=== PATIENT | female | born 1945 | race Caucasian/White ===

== ENCOUNTER → 2017-08-16 | Outpatient (CLI) | payer MEDICARE ==
[~2017-08-16] MED LIST: ATOXIMETIN-B1 CAP PO; Ecotrin325 MG PO; MOTRIN800 MG PO
== END ==
LOC: RAD 18:09
DX: M40.294 Other kyphosis, thoracic region (principal); Q25.46 Tortuous aortic arch

== ENCOUNTER → 2018-06-29 | Outpatient (CLI) | payer MEDICARE | END | disposition home or self-care (01) | LOC: RAD 17:29 | DX: M47.896 Other spondylosis, lumbar region (principal); M54.40 Lumbago with sciatica, unspecified side; I70.0 Atherosclerosis of aorta ==

== ENCOUNTER 2018-11-28 15:16 | Emergency (ER) | payer MEDICARE ==
[~2018-11-28] VITALS: Ht 165.1 cm; Wt 65.8 kg
[2018-11-28 16:19] LABS: HEMATOCRIT 33.3 % (37.0-47.0); HEMOGLOBIN 10.8 g/dl (12.0-16.0); MEAN CELL VOLUME 109.2 fl (81.0-99.0); MEAN CORPUSCULAR HGB 35.4 pg (27.0-31.0); MEAN CORPUSCULAR HGB CONC 32.4 g/dl (33.0-37.0); MEAN PLATELET VOLUME 11.4 fl (9.6-12.3); PLATELET COUNT AUTOMATED 164 10*3/uL (130-400); RED BLOOD COUNT 3.05 10*6/uL (4.10-5.10); RED CELL DISTRI WIDTH 15.6 % (0-14.5); WHITE BLOOD COUNT 11.7 10*3/uL (4.8-10.8)
[2018-11-28 16:30] LABS: ACT PARTIAL THROMBO TIME 25.1 SECONDS (20.8-31.5)
[2018-11-28 16:34] LABS: BILIRUBIN NEGATIVE (NEGATIVE); BLOOD NEGATIVE (NEGATIVE); CLARITY CLEAR (CLEAR); COLOR YELLOW (YELLOW); GLUCOSE NEGATIVE (NEGATIVE); KETONE NEGATIVE (NEGATIVE); LEUKO ESTERASE 1+ (NEGATIVE); NITRITE NEGATIVE (NEGATIVE); UROBILINOGEN 0.2 E.U./dl (0.2-1.0)
[2018-11-28 16:41] LABS: ALBUMIN 3.6 gm/dl (3.1-4.5); ALKALINE PHOSPHATASE 86 U/L (45-117); BUN 15 mg/dl (7-24); CHLORIDE 105 mmol/L (98-107); CREATININE 0.64 mg/dL (0.55-1.02); LIPASE 105 U/L (73-393); POTASSIUM 4.2 mmol/L (3.5-5.1); SGOT/AST 15 IU/L (3-35); SGPT/ALT 18 U/L (12-78); SODIUM 146 mmol/L (136-145); TOTAL PROTEIN 6.8 gm/dL (6.4-8.2)
[2018-11-28 16:42] LABS: ATYPICAL LYMPHS 3 % (0-0); PLATELET SUFFICIENCY NORMAL (NORMAL); TOTAL CELLS COUNTED 100 #CELLS
[2018-11-28 16:48] LABS: BACTERIA 1+
[2018-11-28] MEDS ORDERED: MACROBID100 M1 PO (20:55)
== END 2018-11-28 20:58 | disposition home or self-care (01) ==
LOC: ED 15:16
PROVIDERS: Nurse Practitioner Family
DX: N39.0 Urinary tract infection, site not specified (principal); F17.200 Nicotine dependence, unspecified, uncomplicated; Z88.2 Allergy status to sulfonamides; Z79.899 Other long term (current) drug therapy; Z79.82 Long term (current) use of aspirin

== ENCOUNTER 2019-07-18 23:18 | Emergency (ER) | payer MEDICARE ==
[~2019-07-18] VITALS: Ht 165.1 cm; Wt 63.5 kg
[~2019-07-18 23:18] MED LIST changes: +MACROBID100 M1 PO
== END 2019-07-19 01:11 | disposition home or self-care (01) ==
LOC: ED 23:18
DX: M79.601 Pain in right arm (principal); R60.0 Localized edema; Z88.2 Allergy status to sulfonamides; Z79.2 Long term (current) use of antibiotics; Z79.899 Other long term (current) drug therapy; Z90.710 Acquired absence of both cervix and uterus

== ENCOUNTER 2019-08-11 12:33 | Emergency (ER) | payer MEDICARE ==
[~2019-08-11] VITALS: Ht 165.1 cm; Wt 62.6 kg
[2019-08-11 13:18] LABS: BILIRUBIN NEGATIVE (NEGATIVE); BLOOD 3+ (NEGATIVE); CLARITY CLOUDY (CLEAR); COLOR BROWN (YELLOW); GLUCOSE NEGATIVE (NEGATIVE); KETONE NEGATIVE (NEGATIVE); LEUKO ESTERASE 2+ (NEGATIVE); NITRITE NEGATIVE (NEGATIVE); PH 6.5 (5.0-9.0); UROBILINOGEN 0.2 E.U./dl (0.2-1.0)
[2019-08-11 13:48] LABS: BACTERIA 2+; RBC TNTC rbc/hpf (0-2); WBC TNTC wbc/hpf (0-5)
[2019-08-11] MEDS ORDERED: CIPRO500 MG PO (14:21)
== END 2019-08-11 14:24 | disposition home or self-care (01) ==
LOC: ED 12:33
PROVIDERS: Emergency Medicine
DX: N39.0 Urinary tract infection, site not specified (principal); Z88.2 Allergy status to sulfonamides; Z79.899 Other long term (current) drug therapy; Z79.2 Long term (current) use of antibiotics; Z90.710 Acquired absence of both cervix and uterus

== ENCOUNTER → 2020-03-01 | Outpatient (CLI) | payer MEDICARE ==
[~2020-03-01] MED LIST changes: +CIPRO500 MG PO
== END | disposition home or self-care (01) ==
LOC: RAD 02-28 08:55
DX: M17.10 Unilateral primary osteoarthritis, unspecified knee (principal); K27.9 Peptic ulcer, site unspecified, unspecified as acute or chronic, without hemorrhage or perforation; C95.90 Leukemia, unspecified not having achieved remission; Z78.0 Asymptomatic menopausal state

== ENCOUNTER → 2020-07-29 | Outpatient (CLI) | payer MEDICARE | END | disposition home or self-care (01) | LOC: COVID19 10:20 | PROVIDERS: ATTEND Family Medicine | DX: U07.1 COVID-19 (principal) ==

== ENCOUNTER 2022-11-04 09:43 | Emergency (ER) | payer MEDICARE ==
[~2022-11-04] VITALS: Ht 165.1 cm; Wt 60.3 kg
[2022-11-04] MEDS ORDERED: PREDNISONE10 MG PO ×2 (10:11→10:24)
== END 2022-11-04 10:31 | disposition home or self-care (01) ==
LOC: ED 09:43
DX: M54.42 Lumbago with sciatica, left side (principal); Z88.2 Allergy status to sulfonamides; Z98.51 Tubal ligation status; Z90.711 Acquired absence of uterus with remaining cervical stump; Z98.890 Other specified postprocedural states; Z90.13 Acquired absence of bilateral breasts and nipples

== ENCOUNTER 2025-02-19 16:20 | Emergency (ER) | payer MEDICARE ==
[~2025-02-19] VITALS: Ht 165.1 cm; Wt 59.4 kg
[~2025-02-19 16:20] MED LIST changes: +PREDNISONE10 MG PO
[2025-02-19] MEDS ORDERED: fentaNYL CITRATE 100 MCG/2 ML VIAL IV ONE (17:10)
== END 2025-02-19 18:43 | disposition home or self-care (01) ==
LOC: ED 16:20
DX: S43.005A Unspecified dislocation of left shoulder joint, initial encounter (principal); S42.92XA Fracture of left shoulder girdle, part unspecified, initial encounter for closed fracture; F41.9 Anxiety disorder, unspecified; Z79.82 Long term (current) use of aspirin; Z79.899 Other long term (current) drug therapy; Z88.2 Allergy status to sulfonamides; Z90.710 Acquired absence of both cervix and uterus; Z98.51 Tubal ligation status; Z98.890 Other specified postprocedural states; W18.39XA Other fall on same level, initial encounter; Y93.89 Activity, other specified; Y92.89 Other specified places as the place of occurrence of the external cause; Y99.8 Other external cause status

== ENCOUNTER → 2025-06-20 | Outpatient (CLI) | payer MEDICARE | END | disposition home or self-care (01) | LOC: CT 06-19 16:00 | PROVIDERS: ATTEND Internal Medicine Critical Care Medicine | DX: R91.8 Other nonspecific abnormal finding of lung field (principal); J98.11 Atelectasis; J47.9 Bronchiectasis, uncomplicated; J45.20 Mild intermittent asthma, uncomplicated; Z87.891 Personal history of nicotine dependence; I25.10 Atherosclerotic heart disease of native coronary artery without angina pectoris; I70.0 Atherosclerosis of aorta ==